=== PATIENT | female | born 1990 | race Caucasian/White ===

== ENCOUNTER 2023-01-02 12:59 | Outpatient (CLI) | payer OTHER, SELFPAY ==
--- NOTE | 2023-01-02 13:17 | XR_ITS ---
WS: [id number] Sacrum and coccyx, 3 views, 01/02/2023 Clinical Data: LOW BACK PAIN Comparison: None. Findings: No fractures or dislocations are seen. The SI joints and pubic symphysis are unremarkable. No bone de struction or erosion is seen. XR/XR sacrum coccyx min 2V [id number] Impression: Negative sacrum and coccyx.
--- NOTE | 2023-01-02 13:17 | XR_ITS ---
WS: [id number] Lumbar spine, 3 views, 01/02/2023 Clinical Data: LOW BACK PAIN Comparison: None. Findings: No compression fractures or subluxation is seen. No disc space narrowing is seen. The transverse proc esses and SI joints are normal. There are calcifications overlying the midportion of the right kidney which could be renal. There is a decorative item overlying the L5-S1 disc level. XR/XR lumbar spine 2-3V* 16120 Impression: 1. Negative lumbar spine. 2. Possible right renal calcifications.
== END 2023-01-02 13:00 | disposition home or self-care (01) ==
LOC: RAD 13:08
PROVIDERS: PCP Family Medicine; Visit Provider Family Medicine
DX: M54.50 Low back pain, unspecified (principal)
CPT/HCPCS: 72100; 72220

== ENCOUNTER 2023-06-24 20:00 | Outpatient (CLI) | payer OTHER, SELFPAY | END 2023-06-24 20:01 | disposition home or self-care (01) | LOC: SLEEP 06-25 06:24 | PROVIDERS: PCP Family Medicine; Visit Provider Family Medicine | DX: G47.19 Other hypersomnia (principal); R06.83 Snoring | CPT/HCPCS: 95810 ==

== ENCOUNTER 2023-10-29 03:28 | Emergency (ER) | payer OTHER, SELFPAY ==
--- NOTE | 2023-10-29 03:33 | CTR_ITS ---
PROCEDURE INFORMATION: Exam: CT Abdomen And Pelvis With Contrast Exam date and time: 10/29/2023 4:20 AM Age: 33 years old Clinical indication: Abdominal pain; Localized; Upper; Additional info: Abd pain TECHNIQUE: Imaging protocol: Computed tomography of the abdomen and pelvis with contrast. Radiation optimization: All CT scans at this facility use at least one of these dose optimization techniques: automated exposure control; mA and/or kV adjustment per patient size (includes targeted exams where dose is matched to clinical indication); or iterative reconstruction. Contrast material: OMNI 350; Contrast volume: 100 ml; Contrast route: INTRAVENOUS (IV); REPORTING DATA: Count of CT and Cardiac NM exams in prior 12 months: This patient has received 0 known CTs and 0 known cardiac nuclear medicine studies in the 12 months prior to the current study. COMPARISON: CT pelvis wo con [id number] 01/21/2019 10:16 PM RADIATION DOSE METRICS: Total DLP (mGy-cm): 834.95 FINDINGS: Lungs: No consolidation. Pleural spaces: No pleural effusion. Liver: No mass. Gallbladder and bile ducts: The common bile duct is unremarkable. Distended gallbladder with intrahepatic biliary ductal dilation. Small peripherally calcified stone at the gallbladder neck or possible gallbladder fold, is not excluded. Pancreas: The pancreas is normal. Spleen: The spleen is unremarkable. Adrenal glands: Normal. No mass. Kidneys and ureters: There is symmetric renal enhancement. No hydronephrosis. Nonobstructing right renal calculus. Stomach and bowel: No obstruction. No mucosal thickening. Appendix: The appendix is normal. Intraperitoneal space: No free air. Vasculature: The superior mesenteric artery is patent. The superior mesenteric vein, main portal vein and splenic vein are patent. No portal venous gas. Lymph nodes: No enlarged lymph nodes. Urinary bladder: Unremarkable as visualized. Reproductive: Unremarkable as visualized. Bones/joints: Unremarkable. No acute fracture. Soft tissues: Unremarkable. CT/CT abdomen pelvis w con* [id number] IMPRESSION: Distended gallbladder with intrahepatic biliary ductal dilation. Small peripherally calcified stone at the gallbladder neck or possible gallbladder fold, is not excluded.
--- NOTE | 2023-10-29 03:34 | ED_ITS ---
HPI - Abdominal Pain 2 General: Chief Complaint: Abdominal Pain Stated Complaint: abd pain Time Seen by Provider: 10/29/23 03:31 Source: patient Mode of arrival: ambulatory Limitations: no limitations History of Present Illness: 33-year-old female states that started 1 1:00 she is having severe upper abdominal pain. States pains been sharp in nature rates a 9 out of 10 she denies any fever denies any vomiting or diarrhea. She denies any radiation of her pain denies any improving or worsening factors Associated Symptoms: Denies chills, diarrhea, dysuria, fever(s), nausea and vomiting Review of Systems 2 Const: Denies: fever(s), chills, body aches or change in appetite ENMT: Denies: throat pain or dental pain Card: Denies: chest pain Resp: Denies: dyspnea GI: Reports: abdominal pain; Denies: nausea, vomiting or diarrhea : Denies: dysuria Musc: Denies: neck pain or back pain Skin/Breast: Denies: rash Neuro: Denies: headache(s) PFSH ED 2 PFSH: Medical History (Updated 10/29/23 @ 05:00 by Neto Carnes MD) History of wrist fracture Leukemia in remission Crohn's disease Surgical History History of arthroplasty of both wrists History of History of tonsillectomy and adenoidectomy History of colonoscopy (~2017) Family History Grandmother Cancer breast cancer Denies family history of Anesthesia complication Bleeding disorder Social History Smoking and tobacco/nicotine status: never used tobacco/nicotine Second hand smoke exposure: No Alcohol intake: never Substance/Drug Use: never Adopted: No Caregiver/support person: Yes Lives independently: Yes Household members: family Housing: House Marital status: Single service: No Current occupational status: unemployed Current occupational exposures/hazards: No Pets and animals: No Sexually active: Yes Do you think of yourself as: Straight/Heterosexual Current gender identity: Female Emma/[employer] Special emma needs: No Agree to transfusion: No Physical Exam 2 Const: COMMON NORMALS: patient oriented x3 HENMT: COMMON NORMALS: normocephalic and atraumatic HEAD & SCALP: n ormocephalic and atraumatic Eye: COMMON NORMALS: Equal, round and reactive pupils present and EOMs intact bilaterally PUPIL: Yes Equal, round and reactive pupils present Neck/C-Spine: COMMON NORMALS: full ROM and supple Chest: COMMONS NORMALS: normal inspection of the chest Resp: COMMON NORMALS: normal respiratory effort, No retractions, No use of accessory muscles and clear to auscultation bilaterally AUSCULTATION: clear to auscultation bilaterally Cardio: COMMON NORMALS: regular rate, regular rhythm and No murmurs present (Cardio) RATE: regular rate RHYTHM: regular rhythm GI: COMMON NORMALS: Normal to inspection, nondistended, normoactive bowel sounds present, Soft to palpation and no masses PALPATION: Yes Soft to palpation and Yes Tenderness to palpation present (GI) Details: LUQ and RUQ Extremity: COMMON NORMALS: normal to inspection and full ROM Neuro: COMMON NORMALS: patient oriented x3, moves all extremities and no focal motor deficits Psych: COMMON NORMALS: mental status grossly normal, Normal thought process present and cooperative THOUGHT PROCESS: Normal thought process present Skin: COMMON NORMALS: no rashes or lesions noted and no wounds GENERAL SKIN EXAM: no rashes or lesions noted Course 2 Vital Signs: Vital signs: Vital Signs Temperature 98.8 F 10/29/23 03:35 Pulse Rate 94 10/29/23 04:35 Respiratory Rate 16 10/29/23 04:35 Blood Pressure 128/92 10/29/23 04:35 Pulse Oximetry 92 10/29/23 04:35 Oxygen Delivery Me thod Room Air 10/29/23 03:35 MDM - Abdominal Pain Medical Decision Making Patient presents with abdominal pain CT did show an enlarged gallbladder no signs acute cholecystitis pain here is much improved she has no right upper quadrant tenderness at discharge. Did speak to surgeon will place patient on antibiotics she is to follow-up with him if she has any worsening pain or has fever she is to return she understands agrees to plan. Medical Records I reviewed the patient's medical records. Lab Data I reviewed the patient's lab results. 10/29/23 03:40 10/29/23 03:40 Labs/Radiology: Radiology Impressions Abdomen/Pelvis CT 10/29/23 03:33 IMPRESSION: Distended gallbladder with intrahepatic biliary ductal dilation. Small peripherally calcified stone at the gallbladder neck or possible gallbladder fold, is not excluded. Laboratory Results WBC 14.77 10^3/uL (3.29-11.43) H 10/29/23 03:40 RBC 4.95 10^6/uL (3.85-5.65) 10/29/23 03:40 Hgb 15.60 g/dL (11.27-16.99) 10/29/23 03:40 Hct 45.3 % (36-47) 10/29/23 03:40 MCV 91.5 fl (85-98) 10/29/23 03:40 MCH 31.5 pg (27-33) 10/29/23 03:40 MCHC 34.4 g/dL (30-55) 10/29/23 03:40 RDW 11.9 % (12.1-15.1) L 10/29/23 03:40 Plt Count 243 10^3/cmm (157-399) 10/29/23 03:40 MPV 9.8 fL (7.4-10.4) 10/29/23 03:40 Neut % (Auto) 80.0 % 10/29/23 03:40 Lymph % (Auto) 14.6 % 10/29/23 03:40 [place] % (Auto) 4.6 % 10/29/23 03:40 Eos % (Auto) 0.3 % 10/29/23 03:40 Baso % (Auto) 0.2 % 10/29/23 03:40 Neut # (Auto) 11.80 10^3/uL (1.8-7.7) H 10/29/23 03:40 Lymph # (Auto) 2.2 10^3/uL (0.8-4.8) 10/29/23 03:40 [place] # (Auto) 0.7 10^3/uL (0.2-0.9) 10/29/23 03:40 Eos # (Auto) 0.1 10^3/uL (0.0-0.8) 10/29/23 03:40 Baso # (Auto) 0.0 10^3/uL (0.0-0.1) 10/29/23 03:40 Nucleated RBC % (auto) 0 % 10/29/23 03:40 Nucleated RBCs # 0.0 /100WBC 10/29/23 03:40 Sodium 139 mmol/L (136-145) 10/29/23 03:40 Potassium 3.5 mmol/L (3.5-5.1) 10/29/23 03:40 Chloride 101 mmol/L (98-107) 10/29/23 03:40 Carbon Dioxide 19 mmol/L (22-29) L 10/29/23 03:40 Anion Gap 22.5 (5-19) H 10/29/23 03:40 BUN 8 mg/dL (6-20) 10/29/23 03:40 Creatinine 0.8 mg/dL (0.5-0.9) 10/29/23 03:40 GFR Calculation 83.7 mL/min (90-130) L 10/29/23 03:40 Glucose 192 mg/dL (65-115) H 10/29/23 03:40 Calculated Osmolality 292 mOsm/kg (285-295) 10/29/23 03:40 Calcium 10.3 mg/dL (8.5-10.5) 10/29/23 03:40 Total Bilirubin 1.6 mg/dL (0.15-1.2) H 10/29/23 03:40 AST 158 U/L (0-32) H 10/29/23 03:40 ALT 230 U/L (0-33) H 10/29/23 03:40 Alkaline Phosphatase 173 U/L (35-105) H 10/29/23 03:40 Total Protein 7.6 g/dL (6.6-8.7) 10/29/23 03:40 Albumin 4.8 g/dL (3.5-5.2) 10/29/23 03:40 Globulin 2.8 g/dL (1.3-4.6) 10/29/23 03:40 Lipase 66 U/L (13-60) H 10/29/23 03:40 HCG, Qual Negative (Negative) 10/29/23 03:40 Urine Color Dark yellow (Yellow) 10/29/23 03:59 Urine Appearance Hazy (CLEAR) A 10/29/23 03:59 Urine pH 6 (5-7) 10/29/23 03:59 Ur Specific [place] 1.025 (1.005-1.030) 10/29/23 03:59 Urine Protein Trace (Negative) 10/29/23 03:59 Urine Glucose (UA) Trace (Normal) H 10/29/23 03:59 Urine Ketones 2+ (Negative) H 10/29/23 03:59 Urine Blood Neg (Negative) 10/29/23 03:59 Urine Nitrate Negative (Negative) 10/29/23 03:59 Urine Bilirubin 1+ (Negative) H 10/29/23 03:59 Urine Urobilinogen 1 mg/dL (Negative) H 10/29/23 03:59 Ur Leukocyte Esterase Negative (Negative) 10/29/23 03:59 Urine RBC 0-4 /hpf (0-2) H 10/29/23 03:59 Urine WBC 0-4 /hpf (0-5) H 10/29/23 03:59 Ur Squamous Epith Cells 15-25 /hpf (0-5) H 10/29/23 03:59 Amorphous Sediment Not Reportable 10/29/23 03:59 Urine Bacteria 1+ /hpf (NONE) H 10/29/23 03:59 Urine Mucus 3+ /hpf 10/29/23 03:59 All radiology interpretation(s) finalized by discharge Discharge Plan Discharge Patient Disposition: Home Clinical Impression: Abdominal pain Prescriptions: New hydrocodone-acetaminophen 5-325 mg tablet 1 tab PO Q6H PRN (Reason: pain) Qty: 14 0RF ondansetron 4 mg tablet,disintegrating 4 mg PO Q6H PRN (Reason: nausea and vomiting) Qty: 14 0RF metronidazole 500 mg tablet 500 mg PO Q8H 7 Days Qty: 21 0RF Cipro 500 mg tablet 500 mg PO BID Qty: 14 0RF No Action metformin 1,000 mg tablet 1,000 mg PO DAILY ondansetron HCl [Zofran] 4 mg tablet 4 mg PO Q8H Depo-Estradiol 5 mg/mL oil 2 mg IM .[id number] Discharge Orders: Discharge ED (Routine); Ordered 10/29/23 Ordered By: Neto Carnes Referrals: Franky Hackett MD [Physician] - 1-3 days Porsha Villafuerte DO [Primary Care Provider] - Discharge Diet: Advance as tolerated Discharge Activity: Resume usual activity Patient Instructions: Abdominal Pain (ED), Opioid Safety Coding Level of Care Code ED Bioinformaticist for Debbie Preciado
[2023-10-29 03:35] VITALS: BP 129/81; PULSE 70; RESP 20; TEMP 37.1; O2SAT 100
[2023-10-29 03:45] LABS: Basophils % 0.2 %; Eosinophils # 0.1 10^3/uL (0.0-0.8); Eosinophils % 0.3 %; Hematocrit 45.3 % (36-47); Lymphocytes # 2.2 10^3/uL (0.8-4.8); Lymphocytes % 14.6 %; Mean Corpuscular HGB Conc 34.4 g/dL (30-55); Mean Corpuscular Hemoglobin 31.5 pg (27-33); Mean Corpuscular Volume 91.5 fl (85-98); Mean Platelet Volume 9.8 fL (7.4-10.4); Monocytes # 0.7 10^3/uL (0.2-0.9); Monocytes % 4.6 %; Nucleated Red Blood Cells % 0 %; Platelet Count 243 10^3/cmm (157-399); Red Blood Count 4.95 10^6/uL (3.85-5.65); Red Cell Distribution Width 11.9 % (12.1-15.1); White Blood Count 14.77 10^3/uL (3.29-11.43)
[2023-10-29] MEDS: ondansetron 2 mg/ML SDV 2 mL 4 MG IVP (03:46)
[2023-10-29] MEDS: sodium chloride 0.9% 1,000 ML 999 ML IV (03:46)
[2023-10-29] MEDS: HYDROmorphone 1 mg/mL INJ 1 mL IVP (03:47)
[2023-10-29 03:49] VITALS: BP 129/81; PULSE 77; RESP 16; O2SAT 95
[2023-10-29 03:59] LABS: HCG, Serum Qual Negative (Negative)
[2023-10-29 04:09] LABS: Urine Color Dark Yellow (Yellow)
[2023-10-29 04:09] LABS: Alanine Aminotransferase 230 U/L (0-33); Albumin Level 4.8 g/dL (3.5-5.2); Alkaline Phosphatase 173 U/L (35-105); Anion Gap 22.5 (5-19); Aspartate Amino Transferase 158 U/L (0-32); Blood Urea Nitrogen 8 mg/dL (6-20); Calcium 10.3 mg/dL (8.5-10.5); Carbon Dioxide 19 mmol/L (22-29); Chloride 101 mmol/L (98-107); Globulin 2.8 g/dL (1.3-4.6); Glomerular Filtration Rate 83.7 mL/min (90-130); Glucose 192 mg/dL (65-115); Lipase 66 U/L (13-60); Osmolality Calculated 292 mOsm/kg (285-295); Potassium 3.5 mmol/L (3.5-5.1); Sodium 139 mmol/L (136-145); Total Bilirubin 1.6 mg/dL (0.15-1.2); Total Protein 7.6 g/dL (6.6-8.7)
[2023-10-29 04:10] LABS: Bilirubin Urine 1+ (Negative); Blood Urine Neg (Negative); Glucose Urine UA Trace (Normal); Ketones Urine 2+ (Negative); Leukocyte Esterase Urine Negative (Negative); Nitrate Urine Negative (Negative); Protein Urine Trace (Negative); Specific Gravity, Urine 1.025 (1.005-1.030); Urine Appearance Hazy (CLEAR); Urobilinogen Urine 1 mg/dL (Negative); pH Urine 6 (5-7)
[2023-10-29 04:11] LABS: Add Urine Microscopic? YES; RBC Urine 0-4 /hpf (0-2); Squamous Epithelial Cell Urine 15-25 /hpf (0-5); WBC Urine 0-4 /hpf (0-5)
[2023-10-29 04:12] LABS: Add Urine Culture? No; Bacteria Urine 1+ /hpf; Mucus Urine 3+ /hpf
[2023-10-29] MEDS: iohexol 350 mg/mL 500 mL Btl (per mL) IV (04:24)
[2023-10-29 04:35] VITALS: BP 128/92; PULSE 94; RESP 16; O2SAT 92
[2023-10-29 05:43] VITALS: BP 128/92; PULSE 94; RESP 16; TEMP 37.1; O2SAT 92
--- NOTE | 2023-10-29 09:08 | DCPLANNER ---
Message sent to Gen Surg/Roxann for follow up appt- Abdominal pain
== END 2023-10-29 05:43 | disposition home or self-care (01) ==
PROVIDERS: Emergency Provider Emergency Medicine; PCP Family Medicine
DX: R10.10 Upper abdominal pain, unspecified (principal); Z79.84 Long term (current) use of oral hypoglycemic drugs; Z85.6 Personal history of leukemia
CPT/HCPCS: 74177; 80053; 81001; 83690; 84703; 85025; 96361; 96374; 96375; 99285; J1170; J2405; J7030; Q9967

== ENCOUNTER 2023-11-19 02:29 | Emergency (ER) | payer OTHER, MEDICAID, SELFPAY ==
[2023-11-19 02:46] VITALS: BP 140/84; PULSE 87; RESP 16; TEMP 36.4; O2SAT 97; BMI 32.5
--- NOTE | 2023-11-19 02:56 | ED_ITS ---
HPI - Abdominal Pain 2 General: Chief Complaint: Abdominal Pain Stated Complaint: GB attack, Time Seen by Provider: 11/19/23 02:32 History of Present Illness: Patient presents to the ER complaining of right upper quadrant pain radiating into her back. Patient says her gallbladder. She was seen here in October and referred to general surgery. They are awaiting an MRCP which not scheduled till December 02 patient states her pain is a 10 out of 10 now with nausea. This episode started around 7 PM tonight and has been constant. Review of Systems 2 General: Reports: 10 or more systems reviewed and unremarkable except in HPI and below PFSH ED 2 PFSH: Medical History (Updated 11/19/23 @ 03:57 by Foreign Small DO) History of wrist fracture Leukemia in remission Crohn's disease Surgical History History of arthroplasty of both wrists History of History of tonsillectomy and adenoidectomy History of colonoscopy (~2017) Family History Grandmother Cancer breast cancer Denies family history of Anesthesia complication Bleeding disorder Social History Smoking and tobacco/nicotine status: never used tobacco/nicotine Second hand smoke exposure: No Alcohol intake: former Substance/Drug Use: never Adopted: No Caregiver/support person: Yes Lives independently: Yes Household members: family Housing: House Marital status: Single service: No Current occupational status: unemployed Current occupational exposures/hazards: No Pets and animals: No Sexually active: Yes Do you think of yourself as: Straight/Heterosexual Current gender identity: Female Emma/Orthodoxy: Rastafari Special emma needs: No Agree to transfusion: No Physical Exam 2 Const: COMMON NORMALS: no acute distress, average body habitus, patient oriented x3, no limitations, healthy appearing, alert and well nourished Neck/C-Spine: COMMON NORMALS: no JVD Chest: COMMONS NORMALS: normal inspection of the chest and normal palpation of entire chest wall Resp: COMMON NORMALS: normal respiratory effort, No retractions, No use of accessory muscles and clear to auscultation bilaterally AUSCULTATION: clear to auscultation bilaterally Cardio: COMMON NORMALS: no JVD, regular rate, regular rhythm, S1 normal heart sound present, S2 normal heart sound present, No gallops present (Cardio), No clicks present (Cardio), No murmurs present (Cardio) and No rub (Cardio) R ATE: regular rate RHYTHM: regular rhythm HEART SOUNDS: S1 normal heart sound present and S2 normal heart sound present GI: COMMON NORMALS: Normal to inspection, nondistended, normoactive bowel sounds present, Soft to palpation, No hepatosplenomegaly present and no masses; negative for non-tender (Tender to palpate right upper quadrant) PALPATION: Y es Soft to palpation and Yes No hepatosplenomegaly present Neuro: COMMON NORMALS: patient oriented x3 SENSORIUM/ORIENTATION: Yes alert Course 2 Vital Signs: Vital signs: Vital Signs Temperature 97.6 F 11/19/23 02:46 Pulse Rate 87 11/19/23 02:46 Respiratory Rate 16 11/19/23 02:46 Blood Pressure 140/84 11/19/23 02:46 Pulse Oximetry 97 11/19/23 02:46 Oxygen Delivery Me thod Room Air 11/19/23 02:46 MDM - Abdominal Pain Medical Decision Making Patient presented to the ER with another episode of biliary colic. Patient is already seen the surgeon has an MRCP scheduled. Patient just can get her pain under control tonight. Patient was given a shot of Toradol and Zofran while we are waiting for lab work to come back which was essentially unchanged. This did not help the pain but did help with nausea. Patient was then given 0.5 mg of Dilaudid which did help the pain. Patient be discharged on hydrocodone and is to call her surgeon during normal business hours to get his opinion for her pain control. Differential Diagnosis Unlikely abdominal pain, acute appendicitis, calculus of kidney, constipation, diverticulitis, endometriosis, gastroenteritis, pancreatitis or small bowel obstruction Medical Records I reviewed the patient's medical records. Lab Data I reviewed the patient's lab results. 11/19/23 03:07 11/19/23 03:07 Labs/Radiology: Laboratory Results WBC 9.64 10^3/uL (3.29-11.43) 11/19/23 03:07 RBC 5.06 10^6/uL (3.85-5.65) 11/19/23 03:07 Hgb 15.90 g/dL (11.27-16.99) 11/19/23 03:07 Hct 47.3 % (36-47) H 11/19/23 03:07 MCV 93.5 fl (85-98) 11/19/23 03:07 MCH 31.4 pg (27-33) 11/19/23 03:07 MCHC 33.6 g/dL (30-55) 11/19/23 03:07 RDW 12.0 % (12.1-15.1) L 11/19/23 03:07 Plt Count 212 10^3/cmm (157-399) 11/19/23 03:07 MPV 9.5 fL (7.4-10.4) 11/19/23 03:07 Neut % (Auto) 70.3 % 11/19/23 03:07 Lymph % (Auto) 22.2 % 11/19/23 03:07 [place] % (Auto) 6.0 % 11/19/23 03:07 Eos % (Auto) 1.1 % 11/19/23 03:07 Baso % (Auto) 0.1 % 11/19/23 03:07 Neut # (Auto) 6.77 10^3/uL (1.8-7.7) 11/19/23 03:07 Lymph # (Auto) 2.1 10^3/uL (0.8-4.8) 11/19/23 03:07 [place] # (Auto) 0.6 10^3/uL (0.2-0.9) 11/19/23 03:07 Eos # (Auto) 0.1 10^3/uL (0.0-0.8) 11/19/23 03:07 Baso # (Auto) 0.0 10^3/uL (0.0-0.1) 11/19/23 03:07 Nucleated RBC % (auto) 0 % 11/19/23 03:07 Nucleated RBCs # 0.0 /100WBC 11/19/23 03:07 Sodium 137 mmol/L (136-145) 11/19/23 03:07 Potassium 3.6 mmol/L (3.5-5.1) 11/19/23 03:07 Chloride 101 mmol/L (98-107) 11/19/23 03:07 Carbon Dioxide 21 mmol/L (22-29) L 11/19/23 03:07 Anion Gap 18.6 (5-19) 11/19/23 03:07 BUN 10 mg/dL (6-20) 11/19/23 03:07 Creatinine 0.7 mg/dL (0.5-0.9) 11/19/23 03:07 GFR Calculation 97.6 mL/min (90-130) 11/19/23 03:07 Glucose 174 mg/dL (65-115) H 11/19/23 03:07 Calculated Osmolality 287 mOsm/kg (285-295) 11/19/23 03:07 Calcium 9.7 mg/dL (8.5-10.5) 11/19/23 03:07 Total Bilirubin 1.5 mg/dL (0.15-1.2) H 11/19/23 03:07 AST 124 U/L (0-32) H 11/19/23 03:07 ALT 86 U/L (0-33) H 11/19/23 03:07 Alkaline Phosphatase 86 U/L (35-105) 11/19/23 03:07 Total Protein 7.6 g/dL (6.6-8.7) 11/19/23 03:07 Albumin 4.8 g/dL (3.5-5.2) 11/19/23 03:07 Globulin 2.8 g/dL (1.3-4.6) 11/19/23 03:07 Lipase 63 U/L (13-60) H 11/19/23 03:07 All radiology interpretation(s) finalized by discharge Discharge Plan Discharge Patient Disposition: Home Clinical Impression: Biliary colic Condition: Stable Prescriptions: No Action Depo-Estradiol 5 mg/mL oil 2 mg IM .[id number] meloxicam 7.5 mg tablet 7.5 mg PO DAILY Qty: 7 0RF hydrocodone-acetaminophen 5-325 mg tablet 1 tab PO Q6H PRN (Reason: pain) Qty: 14 0RF ondansetron 4 mg tablet,disintegrating 4 mg PO Q6H PRN (Reason: nausea and vomiting) Qty: 14 0RF Cipro 500 mg tablet 500 mg PO BID Qty: 14 0RF Discharge Orders: Discharge ED (Routine); Ordered 11/19/23 Ordered By: Foreign Small Referrals: Porsha Villafuerte DO [Primary Care Provider] - 1 week Patient Instructions: Abdominal Pain (ED), Opioid Safety, Pain Management Activity Restrictions/Additional Instructions: Please take all medicine as directed. Please push fluids. Please call your surgeon during normal business hours as soon as possible for further evaluation and treatment and pain management. Coding Level of Care Code ED Postpartum Nurse for Debbie Preciado
[2023-11-19 03:11] LABS: Basophils % 0.1 %; Eosinophils # 0.1 10^3/uL (0.0-0.8); Eosinophils % 1.1 %; Hematocrit 47.3 % (36-47); Lymphocytes # 2.1 10^3/uL (0.8-4.8); Lymphocytes % 22.2 %; Mean Corpuscular HGB Conc 33.6 g/dL (30-55); Mean Corpuscular Hemoglobin 31.4 pg (27-33); Mean Corpuscular Volume 93.5 fl (85-98); Mean Platelet Volume 9.5 fL (7.4-10.4); Monocytes # 0.6 10^3/uL (0.2-0.9); Neutrophils # 6.77 10^3/uL (1.8-7.7); Neutrophils % 70.3 %; Nucleated Red Blood Cells % 0 %; Platelet Count 212 10^3/cmm (157-399); Red Blood Count 5.06 10^6/uL (3.85-5.65); White Blood Count 9.64 10^3/uL (3.29-11.43)
[2023-11-19] MEDS: sodium chloride 0.9% 1,000 ML 999 ML IV (03:22)
[2023-11-19] MEDS: ondansetron 2 mg/ML SDV 2 mL 4 MG IVP (03:24)
[2023-11-19] MEDS: ketorolac 30 mg/mL INJ IVP (03:25)
[2023-11-19 03:35] LABS: Alanine Aminotransferase 86 U/L (0-33); Albumin Level 4.8 g/dL (3.5-5.2); Alkaline Phosphatase 86 U/L (35-105); Anion Gap 18.6 (5-19); Aspartate Amino Transferase 124 U/L (0-32); Blood Urea Nitrogen 10 mg/dL (6-20); Calcium 9.7 mg/dL (8.5-10.5); Carbon Dioxide 21 mmol/L (22-29); Chloride 101 mmol/L (98-107); Globulin 2.8 g/dL (1.3-4.6); Glomerular Filtration Rate 97.6 mL/min (90-130); Glucose 174 mg/dL (65-115); Lipase 63 U/L (13-60); Osmolality Calculated 287 mOsm/kg (285-295); Potassium 3.6 mmol/L (3.5-5.1); Sodium 137 mmol/L (136-145); Total Bilirubin 1.5 mg/dL (0.15-1.2); Total Protein 7.6 g/dL (6.6-8.7)
[2023-11-19] MEDS: HYDROmorphone 1 mg/mL INJ 1 mL 0.5 MG IVP (04:05)
[2023-11-19 04:07] VITALS: BP 127/78; PULSE 84; RESP 16; O2SAT 97
[2023-11-19 04:10] VITALS: BP 127/78; PULSE 78; RESP 16; O2SAT 98
== END 2023-11-19 05:29 | disposition home or self-care (01) ==
PROVIDERS: Emergency Provider Emergency Medicine; PCP Family Medicine
DX: K80.50 Calculus of bile duct without cholangitis or cholecystitis without obstruction (principal); Z85.6 Personal history of leukemia
CPT/HCPCS: 80053; 83690; 85025; 96361; 96374; 96375; 99284; J1170; J1885; J2405; J7030

== ENCOUNTER 2023-12-02 07:11 | Outpatient (CLI) | payer OTHER, MEDICAID, SELFPAY ==
--- NOTE | 2023-12-02 07:15 | MR_ITS ---
WS: [id number] MRI/MRCP OF THE ABDOMEN WITHOUT GADOLINIUM ENHANCEMENT TECHNIQUE: Coronal T2 Fase BH, Axial T2 Fase BH, Axial T2 FS BH, Zxial 3D [place] BH, Axial DWI BH, 2D MRCP Radial BH, 3D MRCP (Resp), and Axial 3D Dyn BH Post sequences. CLINICAL INFORMATION: choledocholithiasis COMPARISON: CT 10/29/2023 FINDINGS: Tiny calculi or sludge near the gallbladder neck. Tortuous cystic duct. No pericholecystic fluid or g allbladder wall thickening. Normal common bile duct. No common bile duct dilatation. No visualized ch oledocholithiasis. Normal pancreatic duct. Mild fluid distention of the gallbladder. Mild diffuse fatty infiltration of the liver. Normal spleen. Normal portal vein and splenic vein. Nor mal pancreatic parenchymal enhancement. Adrenal glands are normal. No hydronephrosis in either kidney . Normal caliber upper abdominal aorta. Impression: 1. Tiny microcalculi or sludge near the neck of the gallbladder. This could be further evaluated wit h ultrasound. 2. No gallbladder wall thickening or pericholecystic fluid. 3. Normal common bile duct. No choledocholithiasis. 4. Mild hepatomegaly with diffuse fatty infiltration. 5. No other acute findings.
== END 2023-12-02 07:12 | disposition home or self-care (01) ==
LOC: RAD 07:11
PROVIDERS: PCP Family Medicine; Visit Provider Surgery
DX: K80.50 Calculus of bile duct without cholangitis or cholecystitis without obstruction (principal); K76.0 Fatty (change of) liver, not elsewhere classified; R16.0 Hepatomegaly, not elsewhere classified
CPT/HCPCS: 74181

== ENCOUNTER 2024-01-06 12:15 | Emergency (ER) | payer OTHER, MEDICAID, SELFPAY ==
[2024-01-06 12:22] VITALS: BP 110/62; PULSE 88; RESP 16; TEMP 36.6; O2SAT 96; BMI 29.0
[2024-01-06 12:45] VITALS: BP 134/58; PULSE 68; O2SAT 100
[2024-01-06 12:56] LABS: Basophils % 0.2 %; Eosinophils # 0.2 10^3/uL (0.0-0.8); Hematocrit 44.2 % (36-47); Lymphocytes # 3.9 10^3/uL (0.8-4.8); Lymphocytes % 23.8 %; Mean Corpuscular HGB Conc 34.2 g/dL (30-55); Mean Corpuscular Hemoglobin 30.7 pg (27-33); Mean Corpuscular Volume 89.8 fl (85-98); Mean Platelet Volume 9.7 fL (7.4-10.4); Monocytes # 0.7 10^3/uL (0.2-0.9); Monocytes % 4.5 %; Neutrophils # 11.52 10^3/uL (1.8-7.7); Neutrophils % 70.1 %; Nucleated Red Blood Cells % 0 %; Platelet Count 274 10^3/cmm (157-399); Red Blood Count 4.92 10^6/uL (3.85-5.65); Red Cell Distribution Width 12.5 % (12.1-15.1); White Blood Count 16.43 10^3/uL (3.29-11.43)
--- NOTE | 2024-01-06 12:57 | ED_ITS ---
HPI - Abdominal Pain 2 General: Chief Complaint: Abdominal Pain Stated Complaint: abd pain Time Seen by Provider: 01/06/24 12:17 Source: patient Mode of arrival: ambulatory Limitations: no limitations History of Present Illness: Patient is a 33-year-old female presents to ED today with a complaint of right upper quadrant abdominal pain beginning this morning. Patient states she has had multiple similar episodes starting back in October. She has been seen here in the ED (today makes her third visit) as well as general surgeon Dr. Hackett twice. She is scheduled for an elective cholecystectomy in a few weeks but states she woke up this morning and significant discomfort thus prompting her evaluation today. She is reporting nausea but no episodes of emesis. She has had normal bowel movements. She states it has been a few weeks since her last biliary colic episode. She states her pain today feels identical to previous episodes that she has had over the past few months. MD elicited complaint: abdominal pain Pertinent past history: none Onset (ago): hour(s) Pain Consistency: constant Location: RUQ Severity: severe Pain scale (0-10): 10 Quality: stabbing and sharp Radiation: none Migration to: no migration Exacerbating factors: nothing Relieving factors: nothing Associated Symptoms: Reports nausea; Denies chills, diarrhea, dysuria, fever(s) and vomiting Related Data: Patient : No Review of Systems 2 Const: Denies: fever(s), chills, body aches, fatigue or malaise Card: Denies: chest pain Resp: Denies: dyspnea GI: Reports: abdominal pain and nausea; Denies: vomiting or diarrhea : Denies: flank pain, difficulty voiding, dysuria, urinary frequency, urinary urgency or urinary hesitancy Musc: Denies: neck pain, back pain, extremity pain or joint pain Skin/Breast: Denies: rash Neuro: Denies: headache(s), numbness in extremities, weakness in extremities or sensory changes PFSH ED 2 PFSH: Medical History (Updated 01/06/24 @ 14:52 by ALEC Pinedo) History of wrist fracture Leukemia in remission Crohn's disease Surgical History History of arthroplasty of both wrists History of History of tonsillectomy and adenoidectomy History of colonoscopy (~2018) Family History Grandmother Cancer breast cancer Denies family history of Anesthesia complication Bleeding disorder Social History Smoking and tobacco/nicotine status: never used tobacco/nicotine Second hand smoke exposure: No Alcohol intake: former Substance/Drug Use: never Adopted: No Caregiver/support person: Yes Lives independently: Yes Household members: family Housing: House Marital status: Single service: No Current occupational status: unemployed Current occupational exposures/hazards: No Pets and animals: No Sexually active: Yes Do you think of yourself as: Straight/Heterosexual Current gender identity: Female Emma/Lutheran: Druze Special emma needs: No Agree to transfusion: No Physical Exam 2 Const: COMMON NORMALS: average body habitus, patient oriented x3, no limitations, healthy appearing, alert and well nourished GENERAL APPEARANCE: cooperative and in distress (appears very uncomfortable) O RIENTATION/CONSCIOUSNESS: Yes awake, Yes oriented to person, Yes oriented to place and Yes oriented to time HENMT: COMMON NORMALS: normocephalic and atraumatic HEAD & SCALP: normal to inspection, normocephalic and atraumatic Eye: COMMON NORMALS: no scleral icterus Resp: COMMON NORMALS: normal respiratory effort and clear to auscultation bilaterally AUSCULTATION: clear to auscultation bilaterally Cardio: COMMON NORMALS: regular rate and regular rhythm RATE: regular rate RHYTHM: regular rhythm GI: COMMON NORMALS: Normal to inspection, nondistended, normoactive bowel sounds present, Soft to palpation, No hepatosplenomegaly present and no masses INSPECTION: Yes normal to inspection PALPATION: Yes Soft to palpation, Yes Tenderness to palpation present (GI) (+ Hsu's ) Details: RUQ, Yes Guarding due to palpation present (GI) and Yes No hepatosplenomegaly present : COMMON NORMALS: Yes no CVA tenderness BLADDER/KIDNEY EXAM: Yes no CVA tenderness Back/Pelvis: COMMON NORMALS: no CVA tenderness and thoracic and lumbar spine normal to inspection Extremity: GENERAL: Yes normal exam except as noted Neuro: COMMON NORMALS: patient oriented x3, moves all extremities, no focal motor deficits and no sensory deficits noted SENSORIUM/ORIENTATION: Yes alert, Yes oriented to person, Yes oriented to place and Yes oriented to time Skin: COMMON NORMALS: no rashes or lesions noted GENERAL SKIN EXAM: no rashes or lesions noted Course 2 Vital Signs: Vital signs: Vital Signs Temperature 97.9 F 01/06/24 12:22 Pulse Rate 93 01/06/24 14:03 Respiratory Rate 18 01/06/24 14:03 Blood Pressure 132/86 01/06/24 14:03 Pulse Oximetry 98 01/06/24 14:03 Oxygen Delivery Me thod Room Air 01/06/24 12:22 MDM - Abdominal Pain Medical Decision Making Patient is a nice 33-year-old female who presents to ED today with another episode of biliary colic. She has had multiple episodes over the past 2 months or so. She has been seen here in the emergency department now 3 times for this. She is followed up with general surgeon Dr. Hackett twice. She is scheduled for an elective cholecystectomy on 01/19. Today she arrives very uncomfortable. She has improved after IV pain medications. Today she has a white count of 16.4. Remainder of labs including LFTs are unremarkable. Ultrasound of her gallbladder showing: IMPRESSION: 1. No intrahepatic bile duct dilatation. 2. Distended gallbladder with small stones. No gallbladder wall thickening. 3. Normal common bile duct. Will consult with Dr. Hackett to see if he wants to continue current plan for an elective cholecystectomy or if he would like to admit patient today. After speaking with Dr. Hackett he would like patient discharged home with Meloxicam and Augmentin-later realized she has allergy to penicillins so will do cefuroxime/flagyl. He stated patient would need to wait to her scheduled elective cholecystectomy on 01/19. Patient was given strict instructions for return precautions which she verbalized understanding of. Lab Data 01/06/24 12:42 01/06/24 12:42 Labs/Radiology: Laboratory Results WBC 16.43 10^3/uL (3.29-11.43) H 01/06/24 12:42 RBC 4.92 10^6/uL (3.85-5.65) 01/06/24 12:42 Hgb 15.10 g/dL (11.27-16.99) 01/06/24 12:42 Hct 44.2 % (36-47) 01/06/24 12:42 MCV 89.8 fl (85-98) 01/06/24 12:42 MCH 30.7 pg (27-33) 01/06/24 12:42 MCHC 34.2 g/dL (30-55) 01/06/24 12:42 RDW 12.5 % (12.1-15.1) 01/06/24 12:42 Plt Count 274 10^3/cmm (157-399) 01/06/24 12:42 MPV 9.7 fL (7.4-10.4) 01/06/24 12:42 Neut % (Auto) 70.1 % 01/06/24 12:42 Lymph % (Auto) 23.8 % 01/06/24 12:42 [place] % (Auto) 4.5 % 01/06/24 12:42 Eos % (Auto) 1.0 % 01/06/24 12:42 Baso % (Auto) 0.2 % 01/06/24 12:42 Neut # (Auto) 11.52 10^3/uL (1.8-7.7) H 01/06/24 12:42 Lymph # (Auto) 3.9 10^3/uL (0.8-4.8) 01/06/24 12:42 [place] # (Auto) 0.7 10^3/uL (0.2-0.9) 01/06/24 12:42 Eos # (Auto) 0.2 10^3/uL (0.0-0.8) 01/06/24 12:42 Baso # (Auto) 0.0 10^3/uL (0.0-0.1) 01/06/24 12:42 Nucleated RBC % (auto) 0 % 01/06/24 12:42 Nucleated RBCs # 0.0 /100WBC 01/06/24 12:42 Sodium 138 mmol/L (136-145) 01/06/24 12:42 Potassium 3.4 mmol/L (3.5-5.1) L 01/06/24 12:42 Chloride 100 mmol/L (98-107) 01/06/24 12:42 Carbon Dioxide 21 mmol/L (22-29) L 01/06/24 12:42 Anion Gap 20.4 (5-19) H 01/06/24 12:42 BUN 9 mg/dL (6-20) 01/06/24 12:42 Creatinine 0.7 mg/dL (0.5-0.9) 01/06/24 12:42 GFR Calculation 97.6 mL/min (90-130) 01/06/24 12:42 Glucose 140 mg/dL (65-115) H 01/06/24 12:42 Calculated Osmolality 287 mOsm/kg (285-295) 01/06/24 12:42 Calcium 10.2 mg/dL (8.5-10.5) 01/06/24 12:42 Total Bilirubin 0.6 mg/dL (0.15-1.2) 01/06/24 12:42 AST 14 U/L (0-32) 01/06/24 12:42 ALT 15 U/L (0-33) 01/06/24 12:42 Alkaline Phosphatase 71 U/L (35-105) 01/06/24 12:42 Total Protein 8.0 g/dL (6.6-8.7) 01/06/24 12:42 Albumin 4.5 g/dL (3.5-5.2) 01/06/24 12:42 Globulin 3.5 g/dL (1.3-4.6) 01/06/24 12:42 Lipase 53 U/L (13-60) 01/06/24 12:42 HCG, Qual Negative (Negative) 01/06/24 12:42 Urine Color Yellow (Yellow) 01/06/24 12:36 Urine Appearance Sl hazy (CLEAR) A 01/06/24 12:36 Urine pH 5 (5-7) 01/06/24 12:36 Ur Specific [place] 1.030 (1.005-1.030) 01/06/24 12:36 Urine Protein 1+ (Negative) H 01/06/24 12:36 Urine Glucose (UA) Norm (Normal) 01/06/24 12:36 Urine Ketones 1+ (Negative) H 01/06/24 12:36 Urine Blood 2+ (Negative) H 01/06/24 12:36 Urine Nitrate Negative (Negative) 01/06/24 12:36 Urine Bilirubin 1+ (Negative) H 01/06/24 12:36 Urine Urobilinogen 1 mg/dL (Negative) H 01/06/24 12:36 Ur Leukocyte Esterase Trace (Negative) H 01/06/24 12:36 Urine RBC 0-4 /hpf (0-2) H 01/06/24 12:36 Urine WBC 5-10 /hpf (0-5) H 01/06/24 12:36 Ur Squamous Epith Cells 15-25 /hpf (0-5) H 01/06/24 12:36 Amorphous Sediment Not Reportable 01/06/24 12:36 Urine Bacteria 2+ /hpf (NONE) H 01/06/24 12:36 Urine Mucus 3+ /hpf 01/06/24 12:36 All radiology interpretation(s) finalized by discharge Discharge Plan Discharge Patient Disposition: Home Clinical Impression: Biliary colic Condition: Stable Prescriptions: New ondansetron 4 mg tablet,disintegrating 4 mg PO Q8H PRN (Reason: nausea and vomiting) Qty: 14 0RF meloxicam 7.5 mg tablet 7.5 mg PO DAILY Qty: 10 0RF cefuroxime axetil 500 mg tablet 500 mg PO BID 10 Days Qty: 20 0RF metronidazole 500 mg tablet 500 mg PO BID 10 Days Qty: 20 0RF No Action Depo-Estradiol 5 mg/mL oil 2 mg IM .[id number] Ozempic 1 mg/dose (4 mg/3 mL) Pen Injector See Rx Instructions .ROUTE .COMPLEX Rx Instructions: every friday injection. ondansetron 4 mg tablet,disintegrating 4 mg PO Q6H PRN (Reason: nausea and vomiting) Qty: 14 0RF Discharge Orders: Discharge ED (Routine); Ordered 01/06/24 Ordered By: Rina Angeles Referrals: Porsha Villafuerte DO [Primary Care Provider] - Patient Instructions: Biliary Colic (ED), Abdominal Pain (ED) Activity Restrictions/Additional Instructions: As we discussed you need to return to the emergency department for worsening or severe abdominal pain, repetitive episodes of vomiting or diarrhea, fevers greater than 100.4, any yellowing to your skin or eyes, inability to hold down your medications, or any other concerns you may have. Coding Level of Care Code ED Tool Specialist for Debbie Preciado
[2024-01-06 13:05] LABS: Add Urine Culture? No; Add Urine Microscopic? YES; Bacteria Urine 2+ /hpf; Bilirubin Urine 1+ (Negative); Blood Urine 2+ (Negative); Glucose Urine UA Norm (Normal); Ketones Urine 1+ (Negative); Leukocyte Esterase Urine Trace (Negative); Mucus Urine 3+ /hpf; Nitrate Urine Negative (Negative); Protein Urine 1+ (Negative); RBC Urine 0-4 /hpf (0-2); Squamous Epithelial Cell Urine 15-25 /hpf (0-5); Urine Appearance SL Hazy (CLEAR); Urine Color Yellow (Yellow); Urobilinogen Urine 1 mg/dL (Negative); pH Urine 5 (5-7)
[2024-01-06 13:05] LABS: HCG, Serum Qual Negative (Negative)
[2024-01-06] MEDS: sodium chloride 0.9% 1,000 ML 999 ML IV (13:07)
[2024-01-06] MEDS: ondansetron 2 mg/ML SDV 2 mL 4 MG IVP (13:08)
[2024-01-06 13:09] VITALS: RESP 22
[2024-01-06] MEDS: morphine 4 mg/mL SDV 1 mL IVP (13:09)
[2024-01-06 13:13] LABS: Alanine Aminotransferase 15 U/L (0-33); Albumin Level 4.5 g/dL (3.5-5.2); Alkaline Phosphatase 71 U/L (35-105); Anion Gap 20.4 (5-19); Aspartate Amino Transferase 14 U/L (0-32); Blood Urea Nitrogen 9 mg/dL (6-20); Calcium 10.2 mg/dL (8.5-10.5); Carbon Dioxide 21 mmol/L (22-29); Chloride 100 mmol/L (98-107); Globulin 3.5 g/dL (1.3-4.6); Glomerular Filtration Rate 97.6 mL/min (90-130); Glucose 140 mg/dL (65-115); Lipase 53 U/L (13-60); Osmolality Calculated 287 mOsm/kg (285-295); Potassium 3.4 mmol/L (3.5-5.1); Sodium 138 mmol/L (136-145); Total Bilirubin 0.6 mg/dL (0.15-1.2)
--- NOTE | 2024-01-06 13:22 | US_ITS ---
WS: [id number] RIGHT UPPER QUADRANT ULTRASOUND HISTORY: RUQ ab pain COMPARISON: 10/29/2023 CT. Liver: 20.5 cm in length. Enlarged liver with no bile duct dilatation or mass. Portal Vein: Normal hepatopetal flow with monophasic waveform. Gallbladder: Gallbladder is normally distended. There are small stones or sludge within the lumen. CBD: 0.6 cm Pancreas: Normal size and echogenicity. Right kidney: 11.3 cm in length. Normal size and echogenicity. No hydronephrosis or mass. Aorta and IVC: Unremarkable abdominal aorta and IVC. No ascites. IMPRESSION: 1. No intrahepatic bile duct dilatation. 2. Distended gallbladder with small stones. No gallbladder wall thickening. 3. Normal common bile duct.
[2024-01-06 14:01] VITALS: RESP 18; O2SAT 96
[2024-01-06] MEDS: HYDROmorphone 1 mg/mL INJ 1 mL 0.5 MG IVP (14:01)
[2024-01-06 14:03] VITALS: BP 132/86; PULSE 93; RESP 18; O2SAT 98
[2024-01-06 15:06] VITALS: BP 126/90; PULSE 90; O2SAT 97
== END 2024-01-06 15:07 | disposition home or self-care (01) ==
PROVIDERS: Emergency Provider Physician Assistant; PCP Family Medicine
DX: K80.50 Calculus of bile duct without cholangitis or cholecystitis without obstruction (principal); C95.91 Leukemia, unspecified, in remission
CPT/HCPCS: 36415; 76705; 80053; 81001; 83690; 84703; 85025; 96361; 96374; 96375; 99284; J1170; J2270; J2405; J7030

== ENCOUNTER 2024-01-06 23:25 | Emergency (ER) | payer OTHER, MEDICAID, SELFPAY ==
[2024-01-06 23:29] VITALS: BP 119/77; PULSE 61; RESP 18; TEMP 36.3; O2SAT 100; BMI 29.0
--- NOTE | 2024-01-06 23:43 | W.ED.ABDPA2 ---
HPI - Abdominal Pain General: Chief Complaint: Abdominal Pain Stated Complaint: gallblader Time Seen by Provider: 01/06/24 23:29 History of Present Illness: Patient presents back to the ER for the second time today with right upper quadrant abdominal pain. Patient has a known dysfunctional gallbladder she has already seen the surgeon and already has surgery planned. Patient was seen here today for right upper quadrant pain had lab work that included blood work urinalysis and a ultrasound of the gallbladder. Nurse practitioner even called the surgeon to get his recommendations. Patient was sent home on meloxicam and cefuroxime and Flagyl. Patient states she should receive Dilaudid and morphine earlier which helped the pain and when they ran out she tried to use some hydrocodone she had at home and it did not help and therefore she is back. Review of Systems General: Reports: 10 or more systems reviewed and unremarkable except in HPI and below PFSH ED PFSH: Medical History (Updated 01/07/24 @ 00:41 by Foreign Small DO) History of wrist fracture Leukemia in remission Crohn's disease Surgical History History of arthroplasty of both wrists History of History of tonsillectomy and adenoidectomy History of colonoscopy (~2018) Family History Grandmother Cancer breast cancer Denies family history of Anesthesia complication Bleeding disorder Social History Smoking and tobacco/nicotine status: never used tobacco/nicotine Second hand smoke exposure: No Alcohol intake: former Substance/Drug Use: never Adopted: No Caregiver/support person: Yes Lives independently: Yes Household members: family Housing: House Marital status: Single service: No Current occupational status: unemployed Current occupational exposures/hazards: No Pets and animals: No Sexually active: Yes Do you think of yourself as: Straight/Heterosexual Current gender identity: Female Emma/Amish: Mosque Special emma needs: No Agree to transfusion: No Physical Exam Const: COMMON NORMALS: no acute distress, average body habitus, patient oriented x3, no limitations, healthy appearing, alert and well nourished HENMT: COMMON NORMALS: normocephalic, atraumatic, hearing grossly normal bilaterally, external ears normal, Normal external nose present, moist oral mucous membranes and oropharynx normal HEAD & SCALP: normocephalic and atraumatic NOSE: Normal external nose present EXTERNAL EAR: Yes external ears normal Neck/C-Spine: COMMON NORMALS: no JVD Chest: COMMONS NORMALS: normal inspection of the chest and normal palpation of entire chest wall Resp: COMMON NORMALS: normal respiratory effort, No retractions, No use of accessory muscles and clear to auscultation bilaterally AUSCULTATION: clear to auscultation bilaterally Cardio: COMMON NORMALS: no JVD, regular rate, regular rhythm, S1 normal heart sound present, S2 normal heart sound present, No gallops present (Cardio), No clicks present (Cardio), No murmurs present (Cardio) and No rub (Cardio) RATE: regular rate RHYTHM: regular rhythm HEART SOUNDS: S1 normal heart sound present and S2 normal heart sound present GI: COMMON NORMALS: Normal to inspection, nondistended, normoactive bowel sounds present, Soft to palpation, No hepatosplenomegaly present and no masses; negative for non-tender (Pain with palpation right upper quadrant) PALPATION: Yes Soft to palpation and Yes No hepatosplenomegaly present Neuro: COMMON NORMALS: patient oriented x3 SENSORIUM/ORIENTATION: Yes alert Course Vital Signs: Vital signs: Vital Signs Temperature 97.4 F L 01/06/24 23:29 Pulse Rate 60 01/07/24 00:30 Respiratory Rate 20 H 01/07/24 00:07 Blood Pressure 98/73 01/07/24 00:30 Pulse Oximetry 95 01/07/24 00:30 Oxygen Delivery Me thod Room Air 01/07/24 00:30 MDM - Abdominal Pain Medical Decision Making Reviewed the visit from earlier today physical exam lab work and imaging. Nurse practitioner talked with Dr. Gonzalez and she was sent home on meloxicam with cefuroxime and Flagyl. Patient was given half milligram of Dilaudid and 25 mg Phenergan IM. This seemed to help with the pain and nausea. Patient be discharged on Percocet 5/325 #7 and should follow-up with her surgeon and/or primary care physician for further evaluation and treatment. Differential Diagnosis Likely abdominal pain; Unlikely acute appendicitis, calculus of kidney, constipation, diverticulitis, endometriosis, gastroenteritis, pancreatitis or small bowel obstruction Medical Records I reviewed the patient's medical records. Lab Data I reviewed the patient's lab results. No radiology studies performed this visit Discharge Plan Discharge Patient Disposition: Home Clinical Impression: Biliary colic Condition: Stable Prescriptions: New Percocet 5-325 mg tablet 1 tab PO Q8H PRN (Reason: pain) Qty: 7 0RF No Action Depo-Estradiol 5 mg/mL oil 2 mg IM .[id number] Ozempic 1 mg/dose (4 mg/3 mL) Pen Injector See Rx Instructions .ROUTE .COMPLEX Rx Instructions: every friday injection. ondansetron 4 mg tablet,disintegrating 4 mg PO Q8H PRN (Reason: nausea and vomiting) Qty: 14 0RF meloxicam 7.5 mg tablet 7.5 mg PO DAILY Qty: 10 0RF cefuroxime axetil 500 mg tablet 500 mg PO BID 10 Days Qty: 20 0RF metronidazole 500 mg tablet 500 mg PO BID 10 Days Qty: 20 0RF ondansetron 4 mg tablet,disintegrating 4 mg PO Q6H PRN (Reason: nausea and vomiting) Qty: 14 0RF Discharge Orders: Discharge ED (Routine); Ordered 01/07/24 Ordered By: Foreign Small Referrals: Porsha Villafuerte DO [Primary Care Provider] - Patient Instructions: Biliary Colic (ED), Opioid Safety, Pain Management Activity Restrictions/Additional Instructions: Please take your pain medicine as prescribed. Please follow-up with your surgeon for further evaluation and treatment otherwise please keep your appointment for surgery. Coding Level of Care Code ED Director Of Land Acquisition for Debbie Preciado
[2024-01-07 00:02] VITALS: RESP 20; O2SAT 99
[2024-01-07] MEDS: promethazine 25 mg/mL SDV 1 mL IM (00:02)
[2024-01-07] MEDS: HYDROmorphone 1 mg/mL INJ 1 mL 0.5 MG IM (00:02)
[2024-01-07 00:07] VITALS: BP 116/77; PULSE 58; RESP 20; O2SAT 99
[2024-01-07 00:30] VITALS: BP 98/73; PULSE 60; O2SAT 95
[2024-01-07 01:01] VITALS: BP 107/71; PULSE 68; O2SAT 96
== END 2024-01-07 01:04 | disposition home or self-care (01) ==
PROVIDERS: Emergency Provider Emergency Medicine; PCP Family Medicine
DX: K80.50 Calculus of bile duct without cholangitis or cholecystitis without obstruction (principal); Z85.6 Personal history of leukemia
CPT/HCPCS: 96372; 99284; J1170; J2550

== ENCOUNTER 2024-01-19 06:44 | Day surgery (SDC) | payer OTHER, MEDICAID, SELFPAY ==
[2024-01-19] VITALS (16 sets, daily range): BP systolic 117–143; BP diastolic 72–94; PULSE 62–108; RESP 16–30; TEMP 36.1–36.9; O2SAT 94–100; BMI 30.9
--- NOTE | 2024-01-19 07:03 | P.HP_ITS ---
Same Day Surgery H&P Indication for Procedure/HPI DATE OF PROCEDURE: January 19, 2024 CHIEF COMPLAINT/INDICATIONFOR SURGICAL PROCEDURE: symptomatic cholelithiasis PREOP DIAGNOSIS: symptomatic cholelithiasis PLANNED PROCEDURE: Operation Date: 01/19/24 08:10 Proposed Procedures p 47067 lap jae K80.50(Not Applicable) - Franky Hackett MD Medications/Allergies* Home Medications Medication Instructions Recorded Confirmed Type estradiol cypionate 5 mg/mL 2 mg IM .[id number] 02/07/20 12/30/23 History intramuscular oil (Depo-Estradiol) semaglutide 1 mg/dose (4 mg/3 mL) See Rx Instructions .Route .COMPLEX 12/30/23 01/14/24 History subcutaneous pen injector (Ozempic) albuterol sulfate 90 mcg/actuation 1 inh inhalation PRN 01/19/24 01/19/24 History aerosol inhaler Allergies/Adverse Reactions Allergy/AdvReac Type Severity Reaction Status Date / Time Penicillins Allergy Severe ALGY-Hives Verified 01/06/24 23:32 Pertinent History/Comorbid Conditions* Medical History (Updated 01/07/24 @ 00:41 by Foreign Small DO) History of wrist fracture Leukemia in remission Crohn's disease Surgical History (Updated 02/07/20 @ 10:25 by Keith Mcfadden MD) History of arthroplasty of both wrists History of History of tonsillectomy and adenoidectomy History of colonoscopy (~2017) Family History (Updated 02/07/20 @ 09:00 by Britta Nettles RN) Cancer Grandmother breast cancer Denies family history of Anesthesia complication Bleeding disorder Social History Smoking and tobacco/nicotine status: never used tobacco/nicotine Second hand smoke exposure: No Alcohol intake: former Substance/Drug Use: never Adopted: No Caregiver/support person: Yes Lives independently: Yes Household members: family Housing: House Marital status: Single service: No Current occupational status: unemployed Current occupational exposures/hazards: No Pets and animals: No Sexually active: Yes Do you think of yourself as: Straight/Heterosexual Current gender identity: Female Emma/Catholic: Episcopalian Special emma needs: No Agree to transfusion: No Pertinent Exam Findings alert, oriented x 3 and clear to auscultation bilaterally Recommendations Surgery/Procedure today Other Plans: I have explained to the patient that due to the history of recurrent biliary colic since last clinic visit, that there may be active inflammation, which can increase the risk of bile duct injury, bleeding and post operative complications. the patient acknowledges this risk and wishes to proceed. Coding Level of Care Code Acute Code for Chg Fwd
[2024-01-19] MEDS: sodium chloride 0.9% 1,000 ML 30 ML IV (07:06)
[2024-01-19 07:17] LABS: Glucose Point of Care 140 mg/dL (70-110)
--- NOTE | 2024-01-19 07:22 | P.ANESASSM_ITS ---
Pre-Anesthetic Assessment Height/Weight: Height 1.63 m Weight 81.647 kg Temp Pulse Resp BP Pulse Ox O2 Del Method 97.1 F L 91 18 117/86 97 Room Air 01/19/24 06:59 01/19/24 06:59 01/19/24 06:59 01/19/24 06:59 01/19/24 06:59 01/19/24 07:04 Preop Diagnosis: symptomatic cholelithiasis Operation Date: 01/19/24 08:10 [place] 67762 lap jae K80.50(Not Applicable) - Franky Hackett MD Familial anesthetic complications: None Was Beta Nilam taken within 24 hours: N/A Was Clonidine taken within 24 hours: N/A Last intake: Intake Last Liquid Date 01/18/24 Last Liquid Time 21:00 Last Solid Date 01/18/24 Last Solid Time 21:00 Social No alcohol and No tobacco Exam alert, oriented x 3, clear to auscultation bilaterally (wheeze L (albuterol inhaler)) and regular rate & rhythm Airway Mallampati: Class II Dentition: full Pulmonary Asthma (Mod - rescule inhaler use several times a week) GI crohn's disease on mesalamine, no steroid use within last year Metabolic Diabetes Mellitus Musc/skel leukemia in remission Anesthetic Plan ASA status: 3 Anesthesia: General Risk of > 500 ml blood loss (7ml/kg in children): No Medications/Allergies Home Medications Medication Instructions Recorded Confirmed Last Taken Type estradiol cypionate 5 mg/mL 2 mg IM .[id number] 02/07/20 12/30/23 12/16/23 History intramuscular oil (Depo-Estradiol) ondansetron 4 mg disintegrating 4 mg PO Q6H PRN nausea and 10/29/23 12/30/23 01/12/24 Rx tablet vomiting #14 tabs semaglutide 1 mg/dose (4 mg/3 mL) See Rx Instructions .Route .COMPLEX 12/30/23 01/14/24 01/03/24 History subcutaneous pen injector (Ozempic) oxycodone-acetaminophen 5 mg-325 1 tab PO Q8H PRN pain #7 tabs 01/07/24 01/14/24 01/09/24 Rx mg tablet (Percocet) albuterol sulfate 90 mcg/actuation 1 inh inhalation PRN 01/19/24 01/19/24 01/19/24 05:50 History aerosol inhaler Allergies Allergy/AdvReac Type Severity Reaction Status Date / Time Penicillins Allergy Severe ALGY-Hives Verified 01/06/24 23:32 Current Medications Generic Name Dose Route Start Last Admin Trade Name Mosesq PRN Reason Stop Dose Admin Sodium Chloride 1,000 mls @ 30 mls/hr 01/19/24 07:00 01/19/24 07:06 Sodium Chloride 0.9% IV 01/20/24 06:59 30 mls/hr .Q24H SUZIE Administration PFSH Anesthesia Medical History (Updated 01/07/24 @ 00:41 by Foreign Small DO) History of wrist fracture Leukemia in remission Crohn's disease Surgical History History of arthroplasty of both wrists History of History of tonsillectomy and adenoidectomy History of colonoscopy (~2017) Family History Grandmother Cancer breast cancer Denies family history of Anesthesia complication Bleeding disorder Social History Smoking and tobacco/nicotine status: never used tobacco/nicotine Second hand smoke exposure: No Alcohol intake: former Substance/Drug Use: never Adopted: No Caregiver/support person: Yes Lives independently: Yes Household members: family Housing: House Marital status: Single service: No Current occupational status: unemployed Current occupational exposures/hazards: No Pets and animals: No Sexually active: Yes Do you think of yourself as: Straight/Heterosexual Current gender identity: Female Emma/Latter Day: Yazdanism Special emma needs: No Agree to transfusion: No Data Anesthesia Cardiac Studies: No Data to Display
[2024-01-19 07:23] LABS: OR HCG Qualitative Urine Negative (Negative)
[2024-01-19] MEDS: albuterol 2.5 mg/3 mL Neb INHALATION (07:50)
[2024-01-19] MEDS: vancomycin 1,000 MG in sodium chloride 0.9% 250 ML 250 MG IV (07:52)
--- NOTE | 2024-01-19 08:19 | PC.NURSE ---
0813 pt complaining of itching on top of head and moving down . vanc. stopped . dr. burrell notified. order received for benadryl.
[2024-01-19] MEDS: scopolamine 1.5 Patch 1 PATCH TRANSDERMA (08:23)
[2024-01-19] MEDS: diphenhydrAMINE 50 mg/mL SDV 1mL 12.5 MG IVP (08:28)
[2024-01-19] MEDS: clindamycin 600 MG/50 ML PREMIX 100 MG IV (08:51)
[2024-01-19] MEDS: lidocaine-epi 2% PF 1:200,000 20 mL SDV XX (09:00)
[2024-01-19] MEDS: BUPivacaine 0.25% INJ 10 mL INJECTION (09:00)
--- NOTE | 2024-01-19 09:45 | PM.OP ---
Operative Report Date of procedure: January 19, 2024 Pre-op diagnosis: Symptomatic cholelithiasis Post-op diagnosis: Same Post-op findings: Slightly dilated cystic duct, otherwise normal anatomy. Cystic artery was short and arising from the right hepatic artery. Procedure done: Laparoscopic cholecystectomy Specimens removed/disposition: Gallbladder Surgeon: Franky Hackett MD Wireless Operator: danny OR Staff Estimated blood loss: 5 Complications: None Brief History: Is a 33-year-old female with history asymptomatic cholelithiasis and multiple episodes of biliary colic who presented for laparoscopic cholecystectomy. All risk and benefits were discussed and documented in my preop note. Procedure: Patient was brought into the OR. She was placed in a supine position. General esthesia was given, the abdomen was prepped and draped in the usual sterile fashion and timeout was conducted. The abdomen was accessed via infraumbilical incision with an open technique, a 12 mm Trocar Was Placed and Fixed to the Fascia with 0 Vicryl. Initial Laparoscopy Showed No Evidence of Visceral Injury during entry. Additional 5 mm trocars were placed under direct visualization in the epigastric right upper quadrant and right flank locations. The gallbladder was grasped by the fundus and retracted cephalad, the infundibulum of the gallbladder was retracted in the inferolateral direction. With the use of electrocautery I proceeded to open the peritoneum anterior to the hepatocystic triangle, I carried this opening on the medial and lateral direction to the edges of the liver and then on the sides of the gallbladder to allow for better exposure. Careful dissection with electrocautery and blunt dissection was used in the hepatocystic triangle, the cystic duct and artery were able to be encircled and the lower third of the gallbladder was elevated from the liver bed, thus creating a critical view of safety. The cystic duct and artery were double clipped proximally and single clipped distally and transected. The gallbladder was removed from the liver bed using electrocautery. The liver bed was checked for hemostasis, the area was suctioned and irrigated, no evidence of bleeding was noted, no evidence of bile leak was noted. The gallbladder was then retrieved via the umbilical trocar site in an Endo Catch bag. The umbilical trocar site was then closed using 0 Vicryl with a suture passer under direct visualization. The epigastric trocar and right flank trocar were removed under direct visualization. The right upper quadrant trocar was used to evacuate the pneumoperitoneum and subsequently removed. The wounds were closed in layers using 4-0 Monocryl for the skin and Dermabond was applied. At the end of the procedure all counts were correct, the patient tolerated well the procedure and was transferred to the PACU in stable condition.
[2024-01-19] MEDS: oxyCODONE 5 mg IR Tab/Cap PO (10:52)
--- NOTE | 2024-01-19 12:20 | ANE.PACU2 ---
Inpatient post-anesthesia follow up: Airway intact: Yes Vital signs: Temperature 97 F Pulse Rate 76 Respiratory Rate 18 Blood Pressure 134/81 Pulse Oximetry 100 Oxygen Delivery Me thod Room Air Oxygen Flow Rate 6 Fraction of Inspir ed Oxygen Hydration adequate: Yes Nausea and vomiting: No Pain level: 1 Mental status: Baseline
== END 2024-01-19 12:20 | disposition home or self-care (01) ==
PROVIDERS: Anesthesiology; PCP Family Medicine; Visit Provider Surgery
PROC: 0FT44ZZ Resection of Gallbladder, Percutaneous Endoscopic Approach (ICD-10-PCS; CPT 47562; principal; 2024-01-19 08:00)
DX: K81.1 Chronic cholecystitis (principal); E11.9 Type 2 diabetes mellitus without complications; J45.909 Unspecified asthma, uncomplicated
CPT/HCPCS: 47562; 36416; 81025; 82962; 84703; 88304; 94640; J1100; J1200; J2250; J2405; J2704; J2710; J3010; J3370; J3490; J7030; J7050; J7613

== ENCOUNTER 2024-01-28 10:07 | Outpatient (CLI) | payer OTHER, MEDICAID, SELFPAY ==
--- NOTE | 2024-01-28 10:11 | XR_ITS ---
WS: [id number] Exam: XR chest 2V* [id number] Date/Time of Exam: 01/28/2024 10:30 AM Reason For Exam: COUGH Comparison 01/21/2019. Mild plaque atelectasis in the LEFT base. The lungs are otherwise clear. Normal cardiomediastinal daniela houette and regional bony structures. Increased thoracic kyphosis. IMPRESSION: 1. Plaque atelectasis in the LEFT lower lobe. 2. No acute cardiopulmonary finding.
== END 2024-01-28 10:08 | disposition home or self-care (01) ==
LOC: RAD 10:07
PROVIDERS: PCP Family Medicine; Visit Provider Family Medicine
DX: J98.11 Atelectasis (principal)
CPT/HCPCS: 71046